=== PATIENT | female | born 1990 | race Caucasian/White ===

== ENCOUNTER 2016-02-25 19:43 | Emergency (ER) | payer OTHER ==
[~2016-02-25] VITALS: Ht 160 cm; Wt 75.1 kg
[~2016-02-25 19:43] MED LIST: ALBUTEROL NEBS; CELEXA20 MG PO; CELEXA40 MG PO; DEPAKOTE500 MG PO; LATUDA20 MG PO; LATUDA40 MG PO; MOTRIN600 MG PO; MOTRIN800 MG PO; Motrin PO; NO HOME MEDS; PERCOCET 5/31 TABLET PO; PROVENTIL,2.5 MG/3 M IH; Percocet 5/325,Endoc PO; TESSALON PERLE100 MG PO; TYLENOL WITH C1 EACH PO; VENTOLIN HFA18 GM IH; VICODIN 5-3001 EACH PO; ZITHROMAX Z-PA250 MG PO; albuterol
[2016-02-25 20:52] LABS: ADD MIUA? YES; BILIRUBIN NEGATIVE; BLOOD NEGATIVE; COLOR YELLOW ((YELLOW)); GLUCOSE (STRIP) NEGATIVE; KETONES NEGATIVE; LEUKOCYTES NEGATIVE; NITRITE NEGATIVE; PROTEIN (STRIP) NEGATIVE; SPECIFIC GRAVITY 1.023 (1.000-1.030)
[2016-02-25 20:59] VITALS: BP 127/78
[2016-02-25 21:32] LABS: AMORPHOUS URATES CRYSTALS 2+; BACTERIA NONE SEEN; CASTS NONE SEEN /LPF; CRYSTALS PRESENT; EPITHELIAL CELLS 1+; MUCUS NONE SEEN; RED BLOOD CELLS 0-5 /HPF (0-5); UCUL ADDED? NO; WHITE BLOOD CELLS 0-5 /HPF (0-5)
== END 2016-02-25 21:00 | disposition left against medical advice (07) ==
LOC: EME 19:43
PROVIDERS: Physician Assistant
DX: O26.891 Other specified pregnancy related conditions, first trimester (principal); S30.1XXA Contusion of abdominal wall, initial encounter; O20.0 Threatened abortion; Y04.0XXA Assault by unarmed brawl or fight, initial encounter; Z3A.01 Less than 8 weeks gestation of pregnancy; O99.331 Smoking (tobacco) complicating pregnancy, first trimester
CPT/HCPCS: 80048; 81003; 84702; 85027; 99281; 99283

== ENCOUNTER 2016-07-23 10:30 | Emergency (ER) | payer OTHER ==
[~2016-07-23] VITALS: Ht 165.1 cm; Wt 98.4 kg
[2016-07-23 10:34] VITALS: BP 100/61
== END 2016-07-23 10:38 | disposition left against medical advice (07) ==
LOC: EME 10:30
DX: R53.83 Other fatigue (principal); S60.519A Abrasion of unspecified hand, initial encounter; S80.219A Abrasion, unspecified knee, initial encounter; W19.XXXA Unspecified fall, initial encounter; Y92.410 Unspecified street and highway as the place of occurrence of the external cause; Z53.21 Procedure and treatment not carried out due to patient leaving prior to being seen by health care provider

== ENCOUNTER 2017-03-27 13:30 | Outpatient (CLI) | payer OTHER ==
[2017-03-27] VITALS (10 sets, daily range): BP systolic 83–127; BP diastolic 46–81
[~2017-03-27] VITALS: Ht 165.1 cm; Wt 95.0 kg
[2017-03-27] MEDS ORDERED: COLACE100 MG PO ×2 (14:01→14:02)
[2017-03-27] MEDS ORDERED: PRILOSEC OTC20 MG PO (14:01)
[2017-03-27] MEDS ORDERED: ASPIR 8181 M1 PO (14:02)
[2017-03-27] MEDS ORDERED: PRENATAL TABLE1 EAC3 PO (14:02)
[2017-03-27] MEDS ORDERED: TYLENOL REGULA325 MG PO (14:03)
[2017-03-27 14:16] LABS: BASOPHIL (%) 0.4 % (0-1); EOSINOPHIL (%) 0 % (0-5); HEMATOCRIT 33.9 % (36.0-46.0); HEMOGLOBIN 11.5 G/DL (11.9-15.5); IMMATURE GRANULOCYTE (%) 0.6 % (0.0-0.7); LYMPHOCYTE (%) 19.4 % (15-42); LYMPHOCYTE COUNT 2.1 K/uL (1.0-2.8); MCHC 33.9 G/DL (30.0-36.0); MCV 97.4 FL (83-99); MONOCYTE (%) 10.1 % (3-12); MONOCYTE COUNT 1.1 K/uL (0-0.8); NEUTROPHIL (%) 69.5 % (45-76); NEUTROPHIL COUNT 7.4 K/uL (1.8-6.4); PLATELET COUNT 197 K/uL (156-360); RBC DIS.WIDTH-CV 12.8 % (11.8-14.6); RBC DIS.WIDTH-SD 45.3 % (39-53); RED BLOOD COUNT 3.48 M/uL (3.80-5.20); WHITE BLOOD COUNT 10.7 K/uL (4.1-10.2)
[2017-03-27 14:43] LABS: ALBUMIN 2.8 G/DL (3.2-4.8); ALKALINE PHOSPHATASE 133 IU/L (3-129); ALT (GPT) 18 IU/L (3-49); AST (GOT) 16 IU/L (2-34); CHLORIDE 109 MEQ/L (99-109); CREATININE 0.4 MG/DL (0.6-1.3); GFR ESTIMATE (CALCULATED) > 59 mL/min/; GLUCOSE 85 mg/dL (70-99); POTASSIUM 3.5 MEQ/L (3.7-5.4); SODIUM 140 MEQ/L (136-147); TOTAL BILIRUBIN 0.3 MG/DL (0.0-1.0); TOTAL PROTEIN 5.5 G/DL (6.4-8.3); UREA NITROGEN (BUN) 7 mg/dL (9-23)
[2017-03-27 16:41] LABS: UR CREATININE CONCENTRATION 134.1 MG/DL
== END 2017-03-27 17:20 | disposition home or self-care (01) ==
LOC: LDRP-OP 13:30 → 2WEST 13:31
PROVIDERS: Obstetrics & Gynecology Obstetrics
DX: O16.3 Unspecified maternal hypertension, third trimester (principal); O99.343 Other mental disorders complicating pregnancy, third trimester; F20.9 Schizophrenia, unspecified; F32.9 Major depressive disorder, single episode, unspecified; F90.9 Attention-deficit hyperactivity disorder, unspecified type; Z81.8 Family history of other mental and behavioral disorders; Z3A.38 38 weeks gestation of pregnancy
CPT/HCPCS: 59025; 80053; 82570; 84156; 85025; G0378

== ENCOUNTER 2017-04-02 09:04 | Inpatient (IN) | payer OTHER ==
[2017-04-02] VITALS (9 sets, daily range): BP systolic 112–151; BP diastolic 56–69
[~2017-04-02] VITALS: Ht 167.6 cm; Wt 95.0 kg
[~2017-04-02 09:04] MED LIST changes: +ASPIR 8181 M1 PO; +COLACE100 MG PO; +PRENATAL TABLE1 EAC3 PO; +PRILOSEC OTC20 MG PO; +TYLENOL REGULA325 MG PO
[2017-04-02 13:12] LABS: BASOPHIL (%) 0.4 % (0-1); BASOPHIL COUNT 0.1 K/uL (0-0.1); EOSINOPHIL (%) 0.1 % (0-5); HEMATOCRIT 34.7 % (36.0-46.0); HEMOGLOBIN 11.9 G/DL (11.9-15.5); IMMATURE GRANULOCYTE (%) 0.3 % (0.0-0.7); LYMPHOCYTE (%) 17.5 % (15-42); MCH 33.1 PG (29.0-34.0); MCHC 34.3 G/DL (30.0-36.0); MCV 96.7 FL (83-99); MONOCYTE (%) 6.1 % (3-12); MONOCYTE COUNT 0.7 K/uL (0-0.8); NEUTROPHIL (%) 75.6 % (45-76); NEUTROPHIL COUNT 8.8 K/uL (1.8-6.4); PLATELET COUNT 199 K/uL (156-360); RBC DIS.WIDTH-CV 12.8 % (11.8-14.6); RBC DIS.WIDTH-SD 44.5 % (39-53); RED BLOOD COUNT 3.59 M/uL (3.80-5.20); WHITE BLOOD COUNT 11.6 K/uL (4.1-10.2)
[2017-04-03 00:45] VITALS: BP 111/53
[2017-04-03 02:31] VITALS: BP 117/55
[2017-04-03 03:19] VITALS: BP 102/53
[2017-04-03 04:30] LABS: AMPHETAMINE NEGATIVE (500 ng/mL); BARBITURATES NEGATIVE (200 ng/mL); BENZODIAZEPINES NEGATIVE (150 ng/mL); BUPRENORPHINE NEGATIVE (10 ng/mL); COCAINE NEGATIVE (150 ng/mL); METHADONE NEGATIVE (200 ng/mL); METHAMPHETAMINE NEGATIVE (500 ng/mL); OPIATES (MORPHINE) NEGATIVE (100 ng/mL); OXYCODONE NEGATIVE (100 ng/mL); PHENCYCLIDINE NEGATIVE (25 ng/mL); PROPOXYPHENE NEGATIVE (300 ng/mL); THC CANNABINOIDS NEGATIVE (50 ng/mL); TRICYCLIC ANTIDEPRESSANTS NEGATIVE (300 ng/mL)
[2017-04-03 06:46] LABS: BASOPHIL (%) 0.4 % (0-1); BASOPHIL COUNT 0.1 K/uL (0-0.1); EOSINOPHIL (%) 0 % (0-5); HEMATOCRIT 32.7 % (36.0-46.0); HEMOGLOBIN 10.5 G/DL (11.9-15.5); IMMATURE GRANULOCYTE (%) 0.3 % (0.0-0.7); LYMPHOCYTE (%) 22.6 % (15-42); LYMPHOCYTE COUNT 2.7 K/uL (1.0-2.8); MCH 31.9 PG (29.0-34.0); MCHC 32.1 G/DL (30.0-36.0); MCV 99.4 FL (83-99); MONOCYTE (%) 8.1 % (3-12); NEUTROPHIL (%) 68.6 % (45-76); NEUTROPHIL COUNT 8.1 K/uL (1.8-6.4); PLATELET COUNT 201 K/uL (156-360); RBC DIS.WIDTH-CV 12.8 % (11.8-14.6); RBC DIS.WIDTH-SD 46.1 % (39-53); RED BLOOD COUNT 3.29 M/uL (3.80-5.20); WHITE BLOOD COUNT 11.8 K/uL (4.1-10.2)
[2017-04-03 07:21] VITALS: BP 113/55
[2017-04-03 12:42] VITALS: BP 116/59
[2017-04-03 14:55] VITALS: BP 112/59
[2017-04-04 07:30] VITALS: BP 119/56
[2017-04-04 11:00] VITALS: BP 105/69
[2017-04-04 15:55] VITALS: BP 122/67
[2017-04-04 22:57] VITALS: BP 110/53
[2017-04-05 08:14] VITALS: BP 132/60
[2017-04-05] MEDS ORDERED: ENDOCET 5-3251 EACH PO (10:36)
== END 2017-04-05 12:56 | DRG 766 ==
LOC: 2SOUTH → 2WEST 09:04 → 2SOUTH 10:00 → 2WEST 04-05 12:56
PROVIDERS: Obstetrics & Gynecology
PROC: 10D00Z1 Extraction of Products of Conception, Low, Open Approach (ICD-10-PCS; principal; 2017-04-02)
DX: O98.42 Viral hepatitis complicating childbirth (principal); O99.344 Other mental disorders complicating childbirth; O26.03 Excessive weight gain in pregnancy, third trimester; B19.20 Unspecified viral hepatitis C without hepatic coma; O34.211 Maternal care for low transverse scar from previous cesarean delivery; F90.9 Attention-deficit hyperactivity disorder, unspecified type; F31.9 Bipolar disorder, unspecified; O99.62 Diseases of the digestive system complicating childbirth; K21.9 Gastro-esophageal reflux disease without esophagitis; Z65.3 Problems related to other legal circumstances; Z3A.39 39 weeks gestation of pregnancy; Z37.0 Single live birth; Z68.33 Body mass index [BMI] 33.0-33.9, adult
CPT/HCPCS: 85025; 86850; 86900; 86901; J0690; J1100; J2175; J2270; J2274; J2405; J2590; J7120